=== PATIENT | male | born 2000 | race Caucasian/White ===

== ENCOUNTER 2025-04-08 19:53 | Emergency (ER) | payer OTHER, SELFPAY ==
[2025-04-08] VITALS (7 sets, daily range): BP systolic 116–141; BP diastolic 76–86; PULSE 72–110; RESP 16–20; TEMP 37; O2SAT 94–99; BMI 39.5
--- NOTE | 2025-04-08 20:02 | ED.ABDPAIN ---
HPI - Abdominal Pain General Time Seen by Provider: 20:02 Date Seen: 04/08/25 Chief Complaint: Abdominal Pain Stated Complaint: sharp pain Time Seen by Provider: 04/08/25 20:01 Source: patient and RN notes reviewed Mode of arrival: ambulatory Limitations: no limitations History of Present Illness HPI narrative: This 25-year-old male with autism comes in accompanied with concern what nursing staff wrote down his right upper quadrant pain. He actually is pointing to right lateral chest wall pain. He states it hurts with movement. He has been having symptoms for few days, his mom thought originally maybe was more hip pain. She thought was just muscular. Tonight he was making macaroni and cheese and complained of sharp pain. He states it is in his flank and goes towards his back. He points to his right chest wall. He states he has maybe been doing a little bit of coughing. They have noted no fevers. He denies any trauma or falls. Does not hurt with breathing, not short of breath. No inner chest pain. He has not eaten today yet but was making macaroni and cheese tonight. He states his skin is clear, noted no rash. He tends to border on constipation but they have noticed no bowel changes. No nausea vomiting, no diarrhea, no urinary symptoms. MD elicited complaint: flank pain Related Data Home Medications ?Medication ?Instructions ?Recorded ?Confirmed No Known Home Medications 04/08/25 04/08/25 Allergies Allergy/AdvReac Type Severity Reaction Status Date / Time No Known Drug Allergies Allergy Verified 04/08/25 21:53 Review of Systems Status of ROS Reports: 6 or more systems reviewed and unremarkable except as noted in History and below PFSH PFS Social History Smoking Status: Unknown if ever smoked Exam Const: Vital Signs, click to edit/add: Vital Signs - 24 hr 04/08/25 19:59 04/08/25 20:07 04/08/25 20:32 Temperature 98.6 F Pulse Rate 83 Pulse Rate [Right Pulse Oximeter] 110 H Respiratory Rate 20 18 Blood Pressure 134/79 Blood Pressure [Ri ght Upper Arm] 141/86 H Pulse Oximetry 99 99 94 Oxygen Delivery Me thod Room Air Room Air 04/08/25 20:33 04/08/25 21:01 04/08/25 21:30 Temperature Pulse Rate 77 74 72 Pulse Rate [Right Pulse Oximeter] Respiratory Rate 16 Blood Pressure 116/76 Blood Pressure [Ri ght Upper Arm] Pulse Oximetry 95 95 95 Oxygen Delivery Me thod Room Air Room Air 04/08/25 21:32 Temperature Pulse Rate Pulse Rate [Right Pulse Oximeter] Respiratory Rate Blood Pressure 122/83 Blood Pressure [Ri ght Upper Arm] Pulse Oximetry Oxygen Delivery Me thod This 25-year-old male is alert, interactive, no apparent distress. Sitting comfortably in the bed in exam room 3, no difficulty breathing. Sclera clear, face atraumatic, speech normal, speaking in complete sentences. Neck is supple, no adenopathy, jugular venous distension, no masses. He is able to sit up, lungs are clear, good air entry, no wheezing or crackles, no tachypnea, no accessory muscle use. CV regular rate and rhythm, no murmur, normal S1-S2, no S3-S4. Abdomen is completely soft, nontender, nondistended, no organomegaly, rebound or guarding. In fact when I do go over his right upper quadrant again, he tells me the pain isn't there, points to his right lateral chest wall. I do inspect his chest wall, there is no erythema, no traumatic changes such as abrasion or ecchymosis. There is certainly no rash. I palpate anywhere along his right lateral chest wall he screams out in short screams but then stops immediately. There is no step-off, no crepitus. Documenting provider has reviewed patient's vital signs: yes Course Course ED Course: States he has been coughing, look at a portable chest x-ray to see if there is any pneumonia. I do suppose he could be presenting with atypical pleuritic type pain although he does not seem to have any discomfort with breathing. He is oxygenating well, afebrile. I do not think that his symptoms represent abdominal issues as his pain really is over the lateral chest wall on examination and palpation. His abdomen is completely nontender. We will look had abdominal labs in case he has atypical presentation of intra-abdominal pathology. Will get a urinalysis. His chest x-ray, white count and some of the basic labs 1st and go back and talk with them. Reevaluation(s) Time of Reevaluation #1: 21:10 Reevaluation #1: Did review the D-dimer is elevated, CBC and comprehensive metabolic panel normal. No concerning change in urinalysis, chest x-ray looked normal. Awaiting troponin and proBNP. We did review further imaging, they did decide and agree upon doing chest abdomen pelvis to make sure that there is nothing wrong internally. With the D-dimer being elevated this could be pulmonary emboli. If we are doing imaging I think we carry through into the abdomen. The history maybe a bit more difficult with this patient with autism and have a low threshold to do imaging. They are in agreement. We are going to try little Toradol. They did tell me that he has been sleeping on a futon with some extra pillows to support his back. They were removing rooms and he is not able to get into the bed that he normally sleeps in. They had tried some Tylenol without relief before, he states he did put ice on his chest wall before going bowling yesterday and that did help. I do have a suspicion that this may be musculoskeletal but I cannot rule out other more concerning and potentially life-threatening etiologies without doing more testing. Time of Reevaluation #2: 22:24 Reevaluation #2: Patient is resting comfortably in bed, have reviewed that we are waiting CT imaging. The rest of his labs are normal. If the CT scan does not show any acute pathology, nothing brand representative for his symptoms, then we can safely assume that his pain is coming from the chest wall. I presume it may be coming from his sleeping arrangement. Certainly if the imaging does show pathology, we will discuss this further and they will be notified. CT imaging is negative, plan to discharge to home for conservative management. Vital Signs Vital signs: Initial Vital Signs Temperature 98.6 F 04/08/25 19:59 Temperature Source Temporal Artery Scan 04/08/25 19:59 Pulse Rate 110 H 04/08/25 19:59 Respiratory Rate 20 04/08/25 19:59 Blood Pressure 141/86 H 04/08/25 19:59 Blood Pressure Mean 104 04/08/25 19:59 Blood Pressure Position Sitting 04/08/25 19:59 Pulse Oximetry 99 04/08/25 19:59 Oxygen Delivery Method Room Air 04/08/25 19:59 Vital Signs Temperature 98.6 F 04/08/25 19:59 Pulse Rate 110 H 04/08/25 19:59 Respiratory Rate 20 04/08/25 19:59 Blood Pressure 141/86 H 04/08/25 19:59 Pulse Oximetry 99 04/08/25 19:59 Oxygen Delivery Method Room Air 04/08/25 19:59 Temperature 98.6 F 04/08/25 19:59 Pulse Rate 72 04/08/25 21:30 Respiratory Rate 16 04/08/25 21:01 Blood Pressure 122/83 04/08/25 21:32 Pulse Oximetry 95 04/08/25 21:30 Oxygen Delivery Method Room Air 04/08/25 21:30 Medications Administered Medications: Discontinued Medications Generic Name Dose Route Start Last Admin Trade Name Freq PRN Reason Stop Dose Admin Ketorolac Tromethamine 15 mg 04/08/25 21:19 04/08/25 21:23 Ketorolac 15 Mg/Ml Inj IVP 04/08/25 21:20 15 mg ONCE ONE Administration MDM - Abdominal Pain Lab Data Attestation: I reviewed the patient's lab results. Labs: Lab Results 04/08/25 04/08/25 Range/Units 20:16 20:20 WBC 9.00 (4.50-11.00) K/uL RBC 5.43 (4.30-5.90) m/uL Hgb 16.0 (13.5-17.5) gm/dL Hct 47.0 (37.0-53.0) % MCV 87 (80-100) fL MCH 30 (26-34) pg MCHC 34 (32-36) gm/dL RDW Coeff of Simon 13.6 (11.5-15.5) % Plt Count 253 (140-440) K/uL Neut % (Auto) 50.6 (42.0-72.0) % Lymph % (Auto) 33.2 (20-44) % Appling % (Auto) 8.8 (0.0-11.0) % Eos % (Auto) 6.1 (0.0-7.0) % Baso % (Auto) 1.2 (0.0-3.0) % Neut # (Auto) 4.55 (1.7-7.0) K/uL Lymph # (Auto) 2.99 H (0.90-2.90) K/uL Appling # (Auto) 0.80 (0.00-0.90) K/UL Eos # (Auto) 0.55 H (0.00-0.50) K/uL Baso # (Auto) 0.11 (0.00-0.30) K/uL Abs Immat Gran (auto) 0.01 (0.00-0.30) K/uL Imm/Tot Granulo (auto) 0.1 % D-Dimer Quant (PE/DVT) 0.84 H (0.00-0.50) ug/ml VBG pH 7.368 (7.32-7.43) VBG pCO2 45 (40-50) mmHG VBG pO2 < 30.1 (25-47) mmHG VBG HCO3 26 (21-28) mmol/L Sodium 141 (135-149) mmol/L Potassium 3.8 (3.6-5.1) mmol/L Chloride 106 (96-114) mmol/L Carbon Dioxide 26 (20-32) mmol/L Anion Gap 9 (7-15) mEq/L BUN 10 (5-24) mg/dL Creatinine 1.0 (0.5-1.5) mg/dL Estimated Creat Clear 133.79 Estimated GFR 106 ml/min Glucose 90 (60-115) mg/dL Lactate 0.9 (0.5-1.9) mmol/L Calcium 9.3 (8.4-10.6) mg/dL Total Bilirubin 1.2 (0.1-1.5) mg/dL AST 28 (12-35) U/L ALT 24 (4-50) U/L Alkaline Phosphatase 91 (40-150) U/L Troponin I < 0.01 (0.01-0.04) ng/mL C-Reactive Protein 1.1 H (0.5-1.0) mg/dL NT-Pro-B Natriuret Pep < 20 (See Note) pg/mL Total Protein 8.6 H (6.0-8.3) g/dL Albumin 4.7 (3.3-5.0) g/dL Lipase 40 (23-300) U/L Urine Color Yellow (Yellow) Urine Appearance Clear (Clear) Urine pH 6.0 (5.0-8.5) Ur Specific Index >= 1.030 (1.000-1.030) Urine Protein 1+ A (Negative) Urine Glucose (UA) Negative (Negative) Urine Ketones Trace A (Negative) Urine Blood Negative (Negative) Urine Nitrite Negative (Negative) Urine Bilirubin 1+ A (Negative) Urine Urobilinogen 1.0 (0.2-1.0) Ur Leukocyte Esterase Negative (Negative) Urine RBC 0-2 (0-2) Urine WBC 0-2 (0-5) Ur Squamous Epith Cells Few (None-Few) Urine Bacteria Few A (None) Urine Mucus Moderate A (None) Imaging Data Chest x-ray: Attestation: I have reviewed the pertinent imaging results. Radiologist's impression: Patient: [facility] Facility:?[facility] Patient ID:?[id number] Site Patient ID:?[id number]. Site :?2000 Study:?XRay-Chest 1V PORTABLE-04/08/2025 8:34:09 PM Ordering Physician:?Christin Carrington Final Report: Indication: Right chest wall lateral pain Technique: Chest 1 view. Comparison: None. Findings/Impression: Cardiovascular and mediastinum: Heart size is normal. Unremarkable mediastinum. Lungs and pleural space: Lungs are clear. No pleural effusion or pneumothorax. Bones and soft tissues: No acute findings. Dictated by Flores Colorado MD @ 04/08/2025 8:35:27 PM (Electronic Signature) CT Chest/Ab/Pelvis: Attestation: I have reviewed the pertinent imaging results. Radiologist's impression: Patient: [facility] Facility:?[facility] Patient ID:?[id number] Site Patient ID:?[id number]. Site :?2000 Study:?CT-Chest/Abd/Pelvis W/ 150CC ISOVUE 370-04/08/2025 9:55:29 PM Ordering Physician:?Christin Carrington Final Report: INDICATION: Chest wall and right flank pain. TECHNIQUE: CT chest, abdomen, and pelvis acquired with 150 cc Isovue 370 IV contrast. COMPARISON: None. FINDINGS: CHEST: Lungs and pleura: Lungs and pleural spaces are clear. No suspicious nodules, infiltrates, or effusions. Cardiovascular structures: Heart size is normal. Thoracic aorta and main pulmonary artery are normal in caliber. Mediastinum and nedra: No mass or adenopathy. Chest wall and axilla: No mass or adenopathy. Bones: Unremarkable for age. ABDOMEN AND PELVIS: Liver: Unremarkable. Gallbladder and bile ducts: Unremarkable. Spleen: Unremarkable. Adrenal glands: Unremarkable. Pancreas: Unremarkable. Kidneys: Unremarkable. GI tract: Unremarkable. Lymph nodes: Unremarkable. Vascular structures: Unremarkable. Miscellaneous: Unremarkable. No free air or significant free fluid. Pelvic organs: Unremarkable. Bones: Unremarkable for age. IMPRESSION: No acute abnormality of the chest, abdomen, or pelvis. Please note that all CT scans at this facility use dose modulation, iterative reconstruction, and/or weight-based dosing when appropriate to reduce radiation dose to as low as reasonably achievable. Dictated by Fam Rodriguez MD @ 04/08/2025 10:31:16 PM (Electronic Signature) Discharge Plan Discharge Clinical Impression: Right-sided chest wall pain Instructions: Chest Wall Pain (ED) Additional Instructions: This is looking to be musculoskeletal on workup here. Use Tylenol 1000mg 3x/day baseline for pain. Ibuprofen 600mg up to 4x/day as needed for further pain control, take with food. Can continue with ice to the right chest wall. Watch for rash, increasing cough, fever, difficulty breathing or other concerns and seek re-evaluation if these occur. Do recommend not sleeping on the futon if at all possible, it seems that maybe this is aggravating your symptoms. It is certainly fine to try a things like icy Hot to see if they help. Activity Level: Activity as Tolerated Prescriptions: No Action No Known Home Medications Follow Up/Referrals: Provider,Not a Local [Primary Care Provider, Family Practice] Procedures ABG Interpretation ABG Results: 04/08/25 20:20 VBG pH 7.368 VBG pCO2 45 VBG pO2 < 30.1 VBG HCO3 26
--- NOTE | 2025-04-08 20:07 | CRLHL7_ITS ---
For Patients: As a result of the Century Cures Act, medical imaging exams and procedure reports are released immediately into your electronic medical record. You may view this report before your referring provider. If you have questions, please contact your health care provider. Indication: Right chest wall lateral pain Technique: Chest 1 view. Comparison: None. Findings/Impression: Cardiovascular and mediastinum: Heart size is normal. Unremarkable mediastinum. Lungs and pleural space: Lungs are clear. No pleural effusion or pneumothorax. Bones and soft tissues: No acute findings. Dictated by Flores Colorado MD @ 04/08/2025 8:35:27 PM (Electronically Signed)
[2025-04-08 20:24] LABS: Appearance Urine Clear (Clear)
[2025-04-08 20:30] LABS: HCO3 VBG 26 mmol/L (21-28); Lactate* 0.9 mmol/L (0.5-1.9); PCO2 VBG 45 mmHG (40-50); PO2 VBG < 30.1 mmHG (25-47); pH VBG 7.368 (7.32-7.43)
[2025-04-08 20:34] LABS: Hematocrit* 47.0 % (37.0-53.0); Hemoglobin* 16.0 gm/dL (13.5-17.5); Immature Granulocytes Abs Auto 0.01 K/uL (0.00-0.30); Immature Granulocytes Pct Auto 0.1 %; Lymphocytes Absolute Auto 2.99 K/uL (0.90-2.90); Mean Corpuscular HGB Conc 34 gm/dL (32-36); Mean Corpuscular Hemoglobin 30 pg (26-34); Mean Corpuscular Volume 87 fL (80-100); RDW Coefficient of Variation % 13.6 % (11.5-15.5); Red Blood Count* 5.43 m/uL (4.30-5.90); White Blood Count* 9.00 K/uL (4.50-11.00)
[2025-04-08 20:38] LABS: Slide Review Reflex No
[2025-04-08 20:55] LABS: Albumin* 4.7 g/dL (3.3-5.0); Chloride* 106 mmol/L (96-114); Potassium* 3.8 mmol/L (3.6-5.1); Sodium* 141 mmol/L (135-149)
[2025-04-08 20:57] LABS: Alanine Aminotransferase* 24 U/L (4-50); Aspartate Amino Transferase* 28 U/L (12-35); Blood Urea Nitrogen* 10 mg/dL (5-24); Creatinine* 1.0 mg/dL (0.5-1.5); Est. Creatinine Clearance* 133.79; Estimated Glomerular Filt Rate 106 ml/min
[2025-04-08 20:58] LABS: Alkaline Phosphatase* 91 U/L (40-150); Anion Gap 9 mEq/L (7-15); Bilirubin Total* 1.2 mg/dL (0.1-1.5); Calcium* 9.3 mg/dL (8.4-10.6); Carbon Dioxide* 26 mmol/L (20-32); Glucose* 90 mg/dL (60-115); Total Protein* 8.6 g/dL (6.0-8.3)
[2025-04-08 21:03] LABS: D Dimer Quantitative* 0.84 ug/ml (0.00-0.50)
--- NOTE | 2025-04-08 21:12 | CRLHL7_ITS ---
For Patients: As a result of the Century Cures Act, medical imaging exams and procedure reports are released immediately into your electronic medical record. You may view this report before your referring provider. If you have questions, please contact your health care provider. INDICATION: Chest wall and right flank pain. TECHNIQUE: CT chest, abdomen, and pelvis acquired with 150 cc Isovue 370 IV contrast. COMPARISON: None. FINDINGS: CHEST: Lungs and pleura: Lungs and pleural spaces are clear. No suspicious nodules, infiltrates, or effusions. Cardiovascular structures: Heart size is normal. Thoracic aorta and main pulmonary artery are normal in caliber. Mediastinum and nedra: No mass or adenopathy. Chest wall and axilla: No mass or adenopathy. Bones: Unremarkable for age. ABDOMEN AND PELVIS: Liver: Unremarkable. Gallbladder and bile ducts: Unremarkable. Spleen: Unremarkable. Adrenal glands: Unremarkable. Pancreas: Unremarkable. Kidneys: Unremarkable. GI tract: Unremarkable. Lymph nodes: Unremarkable. Vascular structures: Unremarkable. Miscellaneous: Unremarkable. No free air or significant free fluid. Pelvic organs: Unremarkable. Bones: Unremarkable for age. IMPRESSION: No acute abnormality of the chest, abdomen, or pelvis. Please note that all CT scans at this facility use dose modulation, iterative reconstruction, and/or weight-based dosing when appropriate to reduce radiation dose to as low as reasonably achievable. Dictated by Fam Rodriguez MD @ 04/08/2025 10:31:16 PM (Electronically Signed)
[2025-04-08 21:20] LABS: NT Pro B Type NatriureticPept* < 20 pg/mL (See Note)
== END 2025-04-08 22:44 | disposition home or self-care (01) ==
PROVIDERS: Emergency Provider Family Medicine
DX: R07.89 Other chest pain (principal); R10.9 Unspecified abdominal pain
CPT/HCPCS: 36415; 71045; 71260; 74177; 80053; 81001; 82803; 83605; 83690; 83880; 84484; 85025; 85379; 86140; 87086; 94761; 96374; 99284; 99285; J1885; Q9967